=== PATIENT | female | born 1985 | race Caucasian/White ===

== ENCOUNTER 2020-07-29 03:17 | Emergency (ER) | payer OTHER ==
[~2020-07-29] VITALS: Ht 154.9 cm; Wt 56.7 kg
--- NOTE | ~2020-07-29 | EMS ---
[place] [address] EMS Patient Care Report Name: KRISTEN [facility]ALICIA [id number] Admission: 07/29/20 Attend Phys: Discharge: 07/29/20 Date of : [birth year] Report #: [id number] THIS REPORT FOR: //name// Report Transmitted: 07/29/2020 08:39 EMS Care Summary [facility] Incident [id number] @ 07/29/2020 02:41 Incident Location [address] [place] [id number] Patient KRISTEN GALICIA Female, 34 Years 1985 Patient Address [address] [place] [address] Patient History Gallbladder Disease, Patient Allergies Morphine, Patient Medications None Reported, Chief Complaint chest discomfort Disposition Transported No Lights/[place] Dispatch Reason Chest Pain (Non-Traumatic) Transported To [facility] Narrative Dispatched for 34y/o female with chest pain. Pt. states that she has had chest discomfort and palpitations for the past 2 weeks. [place] [address] EMS Patient Care Report Name: KRISTEN GALICIA Room: [facility] ([place], [place])#: [id number] Admission: 07/29/20 Attend Phys: Discharge: 07/29/20 Date of : [birth year] Report #: [id number] as a "tightness" and it comes and goes on its own with nothing else changing the severity. Pt. work of breathing appears normal and pt. was speaking in run on sentences. Breath sounds were clear and equal. 12 lead EKG showed sinus rhythm. Pt. condition was unchanged during transport. Pt. was transported to [place] for emergency services. Initial Vitals @02:54MI Suspected: false @03:14MI Suspected: false @02:51P: 90,R: 20,BP: 150/94,Pain: 4/10,GCS: 15,Glucose: 114,SpO2: 100,Revised Trauma: 12, @03:00P: 94,R: 20,BP: 124/88,Pain: 0/10,GCS: 15,SpO2: 100,Revised Trauma: 12, @03:10P: 90,R: 20,BP: 122/87,Pain: 0/10,GCS: 15,SpO2: 100,Revised Trauma: 12, Assessments @02:50MENTAL:No Abnormalities,SKIN:No Abnormalities,HEENT:Head/Face: No Abnormalities,Eyes: No Abnormalities,Neck/Airway: No Abnormalities,LUNG SOUNDS:General: No Abnormalities,Left Upper: No Abnormalities,Right Upper: No Abnormalities,Left Lower: No Abnormalities,Right Lower: No Abnormalities,ABDOMEN:General: No Abnormalities,Left Upper: No Abnormalities,Right Upper: No Abnormalities,Left Lower: No Abnormalities,Right Lower: No Abnormalities,PELVIS//GI:No Abnormalities,EXTREMITIES:Left Arm: No Abnormalities,Right Arm: No Abnormalities,Left Leg: No Abnormalities,Right Leg: No Abnormalities,PULSE:NEURO:No Abnormalities, Impression Chest Pain / Discomfort Procedures @02:5412-Lead ECGResponse: UnchangedSucceeded@03:1412-Lead ECGResponse: UnchangedSucceeded Timeline 02:41,Call Received 02:41,Dispatched 02:46,En Route 02:49,Initial Responder On Scene 02:49,On Scene 02:50,At Patient 02:51,BP: 150/94 M,PULSE: 90,RR: 20 R,SPO2: 100 Ox,ETCO2: ,B,PAIN: 4,GCS: 15, 02:54,BP: / M,PULSE: ,RR: R,SPO2: Ox,ETCO2: ,BG: ,PAIN: ,GCS: , 02:54,12-Lead ECG,Response: UnchangedSucceeded, 02:57,Depart Scene 03:00,BP: 124/88 M,PULSE: 94,RR: 20 R,SPO2: 100 Ox,ETCO2: ,BG: ,PAIN: 0,GCS: 15, [place] [address] EMS Patient Care Report Name: GRAYSONKRISTEN F [facility] [id number] Admission: 07/29/20 Attend Phys: Discharge: 07/29/20 Date of : [birth year] Report #: [id number] 03:10,BP: 122/87 M,PULSE: 90,RR: 20 R,SPO2: 100 Ox,ETCO2: ,BG: ,PAIN: 0,GCS: 15, 03:14,At Destination 03:14,12-Lead ECG,Response: UnchangedSucceeded, 03:14,BP: / M,PULSE: ,RR: R,SPO2: Ox,ETCO2: ,BG: ,PAIN: ,GCS: , 03:17,Transfer Patient 03:39,Call Closed 03:39,In District Disclaimer [email or web address] Copyright 2020 [employer] This EMS Care Summary contains data elements from the applicable legal record (which may be displayed differently). It is designed to provide pertinent information for the following purposes: continuity of care, clinical quality, and state data reporting. The complete legal record is available to ED staff and administrators of the receiving hospital in [employer] Patient Tracker. All data is provided "as is."
[2020-07-29] MEDS ORDERED: NAPROXEN500 MG PO (03:24)
[2020-07-29 04:12] LABS: HEMATOCRIT 44.4 % (37.0-47.0); HEMOGLOBIN 14.8 gm/dL (12.0-15.0); MCH 29.3 pg (26.0-34.0); MCHC 33.3 g/dL (28.0-37.0); MPV 9.1 fl. (7.2-11.1); RBC 5.05 mil/uL (4.20-5.00); RDW-CV 13.2 % (10.5-14.5)
[2020-07-29 04:20] LABS: CALCIUM 9.1 mg/dL (8.5-10.1); CREATININE 0.8 mg/dL (0.6-1.3); POTASSIUM 3.7 mmol/L (3.5-5.1)
[2020-07-29 04:25] LABS: ALBUMIN 4.2 g/dL (3.4-5.0); TOTAL BILIRUBIN 0.3 mg/dL (<0.1-1.0); TOTAL PROTEIN 7.7 g/dL (6.4-8.2)
[2020-07-29] MEDS ORDERED: PROPRANOLOL 1010 M1 PO (05:07)
[2020-07-29] MEDS ORDERED: MOBIC15 MG PO (05:07)
[2020-07-29 05:23] VITALS: BP 111/71
--- NOTE | 2020-07-29 14:45 | EKG ---
[place] [address] ELECTROCARDIOGRAM REPORT Name: KRISTEN GALICIA Room: [facility]#: [id number] Admission: 07/29/20 Attend Phys: Discharge: 07/29/20 Date of : 87 Date of Service: 07/29/20325 Report #: [id number] THIS REPORT FOR: //name// [facility] ED Test Date: 2020-07-29 Test Time: 03:26:06 Pat Name: KRISTEN GALICIA Department: Room: Gender: Senior Branch Manager: : 1985 Requested By: Ml Gonzalez Order Number: [id number] MD: Camron Singh Measurements Intervals Brooks Rate: 83 P: 53 MS: 132 QRS: 78 QRSD: 97 T: 40 QT: 356 QTc: 419 Interpretive Statements Sinus rhythm No previous ECG available for comparison Electronically Signed On 07-29-2020 14:45:13 CDT by Camron Singh [email or web address] <ELECTRONICALLY SIGNED> By: Camron Singh MD, [facility] 07/29/20 1445 D: [id number] 5 Camron Singh MD, FACC /EPI
== END 2020-07-29 05:24 | disposition home or self-care (01) ==
LOC: M.ERS 03:17
PROVIDERS: Personal Emergency Response Attendant
DX: G56.03 Carpal tunnel syndrome, bilateral upper limbs (principal); R00.2 Palpitations; Z20.2 Contact with and (suspected) exposure to infections with a predominantly sexual mode of transmission